=== PATIENT | female | born 1970 | race American Indian/Alaskan Native ===

== ENCOUNTER 2019-01-30 14:15 | Emergency (ER) | payer BC ==
[2019-01-30 14:21] VITALS: BP 146/83
[2019-01-30] MEDS ORDERED: LIDOCAINE VISCOUS 2% PO ONE (14:50)
[2019-01-30] MEDS ORDERED: ALUM-MAG HYDROX-SIMETH 200-200-20MG/5ML PO ONE (14:50)
[2019-01-30 15:06] LABS: Bilirubin,Urine NEG (Negative); Blood,Urine NEG (Negative); Color,Urine Colorless (Yellow); Protein,Urine <15 mg/dL mg/dL (Negative); RBC,Urine < 1.0 /HPF (0.0-6.0); Urobilinogen,Urine < 2.0 mg/dL (<2.0)
[2019-01-30 15:11] LABS: Basophils # (Auto) 0.1 K/mm3 (0.0-0.1); Basophils % (Auto) 0.7 % (0.0-1.8); Eosinophils # (Auto) 0.4 K/mm3 (0.0-0.4); Eosinophils % (Auto) 5.6 % (0.0-4.3); Hematocrit 38.3 % (30.3-42.9); Lymphocytes # (Auto) 2.6 K/mm3 (1.2-5.4); Lymphocytes % (Auto) 34.6 % (13.4-35.0); Mean Corpuscular HGB Conc 34 % (30-34); Mean Corpuscular Volume 95 fl (79-97); Monocytes # (Auto) 0.6 K/mm3 (0.0-0.8); Monocytes % (Auto) 7.7 % (0.0-7.3); Platelet Count 462 K/mm3 (140-440); Red Blood Count 4.03 M/mm3 (3.65-5.03)
[2019-01-30 15:13] LABS: Alanine Aminotransferase 10 units/L (7-56); Albumin 3.9 g/dL (3.9-5); BUN/Creatinine Ratio 12; Blood Urea Nitrogen 7 mg/dL (7-17); Calcium 9.1 mg/dL (8.4-10.2); Hemolysis Index 6
--- NOTE | 2019-01-30 17:33 | Cat Scan Report ---
PROCEDURE: CT ABDOMEN PELVIS W CON TECHNIQUE: Axial images with reformations after intravenous contrast ministration. HISTORY: abd pain COMPARISONS: None FINDINGS: There is trace pericardial fluid. The gallbladder is distended and the wall is edematous and thickened. Differential considerations inc lude acute cholecystitis, reactive change or nonspecific edema. Clinical correlation needed. Sonograp hic evaluation may be considered. No biliary duct dilatation. The liver, spleen, pancreas, adrenal glands and kidneys are within normal limits. The appendix and bowel are unremarkable. The urinary bladder is unremarkable. There is a small amount of free fluid in the pelvis. IMPRESSION: The gallbladder is distended and the wall is edematous and thickened. Differential considerations inc lude acute cholecystitis, reactive change or nonspecific edema. Clinical correlation needed. Sonograp hic evaluation may be considered. . Small free fluid in the pelvis. This document is electronically signed by Lexa Tinajero MD., January 30 2019 05:31:24 PM ET
--- NOTE | 2019-01-30 18:28 | Emergency Department Report ---
ED Abdominal Pain HPI - General Chief Complaint: Abdominal Pain Stated Complaint: ABD PAIN Time Seen by Provider: 01/30/19 14:41 Source: patient Mode of arrival: Ambulatory Limitations: No Limitations - History of Present Illness Initial Comments: 48-year-old female with epigastric pain 2 days. Patient states she was seen previously at urgent care and was diagnosed with gastritis. Patient states she was given prescription for Zofran. States her symptoms improved, however epigastric pain returned this morning. States pain is radiating to her back. Denies right upper quadrant pain, fever. MD Complaint: abdominal pain -: days(s) (2) Location: epigastric Radiation: back Migration to: no migration Severity: moderate Severity scale (0 -10): 10 Quality: aching Consistency: intermittent Improves With: nothing Worsens With: nothing Context: possible food poisoning Associated Symptoms: nausea, vomiting. denies: diarrhea, fever - Related Data Previous Rx's Medication Instructions Recorded Last Taken Type Butalb/Acetamin/Caff 50-325-40 1 each PO Q4H PRN #20 tablet 10/22/14 Unknown Rx [Fioricet] Dicyclomine [Bentyl] 20 mg PO QID PRN #20 tablet 01/30/19 Unknown Rx traMADol [Ultram] 50 mg PO Q6HR PRN #7 tablet 01/30/19 Unknown Rx Allergies Allergy/AdvReac Type Severity Reaction Status Date / Time No Known Allergies Allergy Verified 01/30/19 14:16 ED Review of Systems ROS: Stated complaint: ABD PAIN Other details as noted in HPI Comment: All other systems reviewed and negative Constitutional: denies: chills, fever Gastrointestinal: abdominal pain, nausea, vomiting. denies: diarrhea ED Past Medical Hx - Past Medical History Previous Medical History?: No - Surgical History Additional Surgical History: hysterectomy - Social History Smoking Status: Former Smoker Substance Use Type: Alcohol - Medications Home Medications: Home Medications Medication Instructions Recorded Confirmed Last Taken Type Butalb/Acetamin/Caff 50-325-40 1 each PO Q4H PRN #20 tablet 10/22/14 Unknown Rx [Fioricet] Dicyclomine [Bentyl] 20 mg PO QID PRN #20 tablet 01/30/19 Unknown Rx traMADol [Ultram] 50 mg PO Q6HR PRN #7 tablet 01/30/19 Unknown Rx ED Physical Exam - General Limitations: No Limitations General appearance: alert, in no apparent distress - Head Head exam: Present: atraumatic, normocephalic - Eye Eye exam: Present: normal appearance - ENT ENT exam: Present: mucous membranes moist - Neck Neck exam: Present: normal inspection - Respiratory Respiratory exam: Present: normal lung sounds bilaterally. Absent: respiratory distress - Cardiovascular Cardiovascular Exam: Present: regular rate, normal rhythm - GI/Abdominal GI/Abdominal exam: Present: soft, tenderness (mild epigastric tenderness, no RUQ tenderness). Absent: distended - Extremities Exam Extremities exam: Present: normal inspection - Neurological Exam Neurological exam: Present: alert, oriented X3 - Psychiatric Psychiatric exam: Present: normal affect, normal mood - Skin Skin exam: Present: warm, dry, intact, normal color ED Course Vital Signs 01/30/19 14:19 Temperature 98.2 F Pulse Rate 90 Blood Pressure 146/83 - Consultations Consultation #1: 01/30/19 18:27 Spoke w/ Dr Schultz. Since labs nml, no RUQ tenderness can d/c w/ outpt f/u w/ GI and Gen Surg ED Medical Decision Making - Lab Data Result diagrams: 01/30/19 14:28 01/30/19 14:28 - Radiology Data Radiology results: report reviewed, image reviewed - Differential Diagnosis gasrtitis, pancreatitis, gallstones Critical care attestation.: If time is entered above; I have spent that time in minutes in the direct care of this critically ill patient, excluding procedure time. ED Disposition Clinical Impression: Gastritis, Thickening of wall of gallbladder Disposition: DC-01 TO HOME OR SELFCARE Is pt being admited?: No Condition: Stable Instructions: Gastritis (ED), Diet for Ulcers and Gastritis (ED), Abdominal Pain (ED) Prescriptions: Dicyclomine [Bentyl] 20 mg PO QID PRN #20 tablet PRN Reason: abdominal pain traMADol [Ultram] 50 mg PO Q6HR PRN #7 tablet PRN Reason: Pain Referrals: SUKH SCHULTZ MD [Staff Physician] - 3-5 Days [facility] [Provider Group] - 3-5 Days Time of Disposition: 18:30
== END 2019-01-30 18:42 | disposition home or self-care (01) ==
LOC: ED 14:15
DX: K29.70 Gastritis, unspecified, without bleeding (principal); K82.8 Other specified diseases of gallbladder; Z87.891 Personal history of nicotine dependence; Z90.710 Acquired absence of both cervix and uterus
CPT/HCPCS: 36415; 74177; 80053; 81001; 83690; 84703; 85025; 99284; Q9967